=== PATIENT | male | born 1960 | race Caucasian/White ===

== ENCOUNTER 2018-04-14 16:30 | Inpatient (IN) | payer MEDICARE ==
[~2018-04-14] VITALS: Ht 180.3 cm; Wt 100.2 kg
[~2018-04-14 16:30] MED LIST: DIVA500T35 PO; DUTA.5 PO; GABA-531 PO; METF-444 PO; PREM125 PO; QUET200T PO; QUET300T2 PO; TAMS0.4C32 PO
[2018-04-14] MEDS ORDERED: LORazepam 1 MG TABLET PO PRN (17:30)
[2018-04-14] MEDS ORDERED: ZOLPIDEM TARTRATE 10 MG TABLET PO PRN (17:30)
[2018-04-14] MEDS ORDERED: PNEUMOCOCCAL VACCINE POLYVALENT 0.5 ML VIAL [PPSV23] IM ONE (17:45)
[2018-04-14 18:00] VITALS: BP 125/92
[2018-04-14 18:30] VITALS: BP 140/86
[2018-04-14] MEDS: GABAPENTIN 300 MG CAPSULE PO SCH (18:39)
[2018-04-14 19:23] LABS: GLUCOMETER DEV NAME(LOC) BV2N3; GLUCOSE,POINT OF CARE 140 MG/DL (70-110)
[2018-04-14] MEDS: OLANZapine 10 MG TABLET PO SCH (20:50)
[2018-04-14] MEDS: DIVALPROEX SODIUM 500 MG ER TABLET PO SCH (20:50)
[2018-04-14 21:30] VITALS: BP 132/82
[2018-04-14] MEDS ORDERED: GLUCAGON,HUMAN RECOMBINANT 1 MG VIAL IM PRN (21:45)
[2018-04-15 02:26] VITALS: BP 120/69
[2018-04-15 05:58] LABS: GLUCOMETER DEV NAME(LOC) BV2N3; GLUCOSE,POINT OF CARE 140 MG/DL (70-110)
[2018-04-15] MEDS: MetFORMIN HCL 500 MG TABLET PO SCH ×2 (06:41→16:38)
[2018-04-15] MEDS: NICOTINE 21 MG/24 HOUR PATCH TD SCH (08:35)
[2018-04-15] MEDS: GABAPENTIN 300 MG CAPSULE PO SCH ×2 (08:35→16:38)
[2018-04-15 08:40] VITALS: BP 126/72
[2018-04-15] MEDS ORDERED: ESTROGENS,CONJUGATED 0.625 MG TABLET PO SCH (09:00)
[2018-04-15 09:35] LABS: BASOPHILS % (AUTO) 1.1 % (0.0-2.0); EOSINOPHILS % (AUTO) 3.3 % (1.0-6.0); HEMATOCRIT 40.9 % (41-53); HEMOGLOBIN 14.1 g/dL (13.5-17.5); LYMPHOCYTES # (AUTO) 3.2 K/uL (1.0-4.8); LYMPHOCYTES % (AUTO) 44.2 % (22.0-44.0); MEAN CORPUSCULAR HEMOGLOBIN 31.6 pg (26.0-34.0); MEAN CORPUSCULAR HGB CONC 34.5 G/dL (31.0-37.0); MEAN CORPUSCULAR VOLUME 92 fL (80-100); MONOCYTES # (AUTO) 0.6 K/uL (0.1-1.0); MONOCYTES % (AUTO) 8.6 % (2.0-9.0); NEUTROPHILS # (AUTO) 3.1 K/uL (1.8-7.7); NEUTROPHILS % (AUTO) 42.8 % (40.0-70.0); PLATELET COUNT (AUTO) 267 K/uL (150-450); RED BLOOD CELL COUNT(AUTO) 4.46 MIL/uL (4.50-5.90); RED CELL DISTRIBUTION WIDTH 14.2 % (11.5-14.5)
[2018-04-15 09:38] LABS: ALANINE AMINOTRANSFERASE 22 U/L (12-78); ALBUMIN 3.3 g/dL (3.4-5.0); ALKALINE PHOSPHATASE 49 U/L (46-116); ANION GAP 9 mmol/L (8-16); ASPARTATE AMINOTRANSFERASE 13 U/L (15-37); BILIRUBIN,TOTAL 0.2 mg/dL (0.1-1.0); CALCIUM, TOTAL 8.4 mg/dL (8.8-10.5); CARBON DIOXIDE 26 mmol/L (22-29); CHLORIDE 102 mmol/L (98-107); CHOL/HDL RATIO 4.1 (4.2-7.3); CHOLESTEROL 194 mg/dL (131-200); CREATININE 0.85 mg/dL (0.60-1.30); FREE T4 (FREE THYROXINE) 0.73 ng/dL (0.76-1.46); GLOMERULAR FILTR. RATE CALC > 60 mL/min (>60); GLUCOSE,RANDOM 113 mg/dL (70-110); HDL CHOLESTEROL 47 mg/dL (40-60); LDL CHOL (CALC.) 96 mg/dL (0-130); POTASSIUM 3.7 mmol/L (3.5-5.1); SODIUM SERUM 137 mmol/L (136-145); TOTAL PROTEIN, SERUM 7.2 g/dL (6.4-8.2); TRIGLYCERIDES 257 mg/dL (15-150); UREA NITROGEN, BLOOD 23 mg/dL (7-18)
[2018-04-15 10:44] LABS: HEMOGLOBIN A1C 6.4 % (4.5-6.2)
[2018-04-15 11:08] LABS: GLUCOMETER DEV NAME(LOC) BV2N3; GLUCOSE,POINT OF CARE 100 MG/DL (70-110)
[2018-04-15] MEDS: ESTRADIOL 1 MG TABLET PO SCH (12:07)
[2018-04-15 13:13] LABS: FOLATE SERUM 10.6 ng/mL (5.4-)
[2018-04-15 15:02] VITALS: BP 110/73
[2018-04-15] MEDS: IBUPROFEN 600 MG TABLET PO PRN (15:02)
[2018-04-15 16:13] VITALS: BP 104/68
[2018-04-15 16:28] LABS: GLUCOMETER DEV NAME(LOC) BV2N3; GLUCOSE,POINT OF CARE 105 MG/DL (70-110)
[2018-04-15 20:33] LABS: GLUCOMETER DEV NAME(LOC) BV2N3; GLUCOSE,POINT OF CARE 105 MG/DL (70-110)
[2018-04-15] MEDS: DIVALPROEX SODIUM 500 MG ER TABLET PO SCH (20:33)
[2018-04-15] MEDS: DUTASTERIDE 0.5 MG CAPSULE PO SCH (20:33)
[2018-04-15] MEDS: OLANZapine 10 MG TABLET PO SCH (20:34)
[2018-04-15] MEDS: TAMSULOSIN HCL 0.4 MG CAPSULE PO SCH (20:35)
[2018-04-16 00:10] VITALS: BP 102/63
[2018-04-16 06:23] LABS: GLUCOMETER DEV NAME(LOC) BV2N3; GLUCOSE,POINT OF CARE 136 MG/DL (70-110)
[2018-04-16] MEDS: MetFORMIN HCL 500 MG TABLET PO SCH ×2 (06:44→17:00)
[2018-04-16 08:15] VITALS: BP 121/68
[2018-04-16] MEDS: GABAPENTIN 300 MG CAPSULE PO SCH ×2 (08:27→17:00)
[2018-04-16] MEDS: ESTRADIOL 1 MG TABLET PO SCH (08:27)
[2018-04-16] MEDS: NICOTINE 21 MG/24 HOUR PATCH TD SCH (08:27)
[2018-04-16 10:36] LABS: HIV 1-2 SCREEN 4TH GEN W/RFLX Non Reactive (Non Reactive)
[2018-04-16 11:32] VITALS: BP 117/79
[2018-04-16] MEDS: IBUPROFEN 600 MG TABLET PO PRN (11:32)
[2018-04-16 11:43] LABS: GLUCOMETER DEV NAME(LOC) BV2N3; GLUCOSE,POINT OF CARE 116 MG/DL (70-110)
[2018-04-16 16:03] VITALS: BP 119/68
[2018-04-16 17:03] LABS: GLUCOMETER DEV NAME(LOC) BV2N3; GLUCOSE,POINT OF CARE 126 MG/DL (70-110)
[2018-04-16 18:49] VITALS: BP 112/72
[2018-04-16] MEDS: ACETAMINOPHEN 325 MG TABLET PO PRN (18:49)
[2018-04-16] MEDS: TAMSULOSIN HCL 0.4 MG CAPSULE PO SCH (20:42)
[2018-04-16] MEDS: DIVALPROEX SODIUM 500 MG ER TABLET PO SCH (20:42)
[2018-04-16] MEDS: DUTASTERIDE 0.5 MG CAPSULE PO SCH (20:42)
[2018-04-16] MEDS: OLANZapine 10 MG TABLET PO SCH (20:42)
[2018-04-16 20:57] LABS: GLUCOMETER DEV NAME(LOC) BV2N3; GLUCOSE,POINT OF CARE 111 MG/DL (70-110)
[2018-04-17 06:30] VITALS: BP 106/61
[2018-04-17] MEDS: MetFORMIN HCL 500 MG TABLET PO SCH ×2 (06:49→17:00)
[2018-04-17 06:52] LABS: GLUCOMETER DEV NAME(LOC) BV2N3; GLUCOSE,POINT OF CARE 117 MG/DL (70-110)
[2018-04-17 08:08] VITALS: BP 102/64
[2018-04-17] MEDS: NICOTINE 21 MG/24 HOUR PATCH TD SCH (08:47)
[2018-04-17] MEDS: GABAPENTIN 400 MG CAPSULE PO SCH ×2 (08:47→17:00)
[2018-04-17] MEDS: ESTRADIOL 1 MG TABLET PO SCH (08:47)
[2018-04-17 11:07] LABS: GLUCOMETER DEV NAME(LOC) BV2N3; GLUCOSE,POINT OF CARE 113 MG/DL (70-110)
[2018-04-17 15:58] VITALS: BP 116/77
[2018-04-17 16:00] VITALS: BP 116/77
[2018-04-17 16:22] LABS: GLUCOMETER DEV NAME(LOC) BV2N3; GLUCOSE,POINT OF CARE 95 MG/DL (70-110)
[2018-04-17] MEDS: ACETAMINOPHEN 325 MG TABLET PO PRN (17:15)
[2018-04-17 20:22] LABS: GLUCOMETER DEV NAME(LOC) BV2N3; GLUCOSE,POINT OF CARE 145 MG/DL (70-110)
[2018-04-17] MEDS: DIVALPROEX SODIUM 500 MG ER TABLET PO SCH (20:30)
[2018-04-17] MEDS: DUTASTERIDE 0.5 MG CAPSULE PO SCH (20:30)
[2018-04-17] MEDS: TAMSULOSIN HCL 0.4 MG CAPSULE PO SCH (20:30)
[2018-04-17] MEDS: OLANZapine 10 MG TABLET PO SCH (20:30)
[2018-04-17] MEDS: INSULIN LISPRO 100 UNITS/ML SQ PRN (20:46)
[2018-04-18 00:35] VITALS: BP 135/70
[2018-04-18] MEDS: MetFORMIN HCL 500 MG TABLET PO SCH ×2 (06:44→16:41)
[2018-04-18 06:58] LABS: GLUCOMETER DEV NAME(LOC) BV2N3; GLUCOSE,POINT OF CARE 122 MG/DL (70-110)
[2018-04-18] MEDS: GABAPENTIN 400 MG CAPSULE PO SCH ×2 (08:10→16:41)
[2018-04-18] MEDS: NICOTINE 21 MG/24 HOUR PATCH TD SCH (08:10)
[2018-04-18] MEDS: ESTRADIOL 1 MG TABLET PO SCH (08:10)
[2018-04-18 08:19] VITALS: BP 112/67
[2018-04-18 11:08] LABS: GLUCOMETER DEV NAME(LOC) BV2N3; GLUCOSE,POINT OF CARE 113 MG/DL (70-110)
[2018-04-18 16:18] VITALS: BP 123/76
[2018-04-18 16:33] LABS: GLUCOMETER DEV NAME(LOC) BV2N3; GLUCOSE,POINT OF CARE 153 MG/DL (70-110)
[2018-04-18] MEDS: INSULIN LISPRO 100 UNITS/ML SQ PRN (16:51)
[2018-04-18 20:22] LABS: GLUCOMETER DEV NAME(LOC) BV2N3; GLUCOSE,POINT OF CARE 94 MG/DL (70-110)
[2018-04-18] MEDS: DUTASTERIDE 0.5 MG CAPSULE PO SCH (20:36)
[2018-04-18] MEDS: TAMSULOSIN HCL 0.4 MG CAPSULE PO SCH (20:36)
[2018-04-18] MEDS: DIVALPROEX SODIUM 500 MG ER TABLET PO SCH (20:36)
[2018-04-18] MEDS: OLANZapine 10 MG TABLET PO SCH (20:37)
[2018-04-19 06:03] VITALS: BP 116/75
[2018-04-19] MEDS: MetFORMIN HCL 500 MG TABLET PO SCH ×2 (06:20→16:35)
[2018-04-19 08:17] VITALS: BP 112/60
[2018-04-19] MEDS: GABAPENTIN 400 MG CAPSULE PO SCH ×2 (08:37→16:35)
[2018-04-19] MEDS: NICOTINE 21 MG/24 HOUR PATCH TD SCH (08:38)
[2018-04-19] MEDS: ESTRADIOL 1 MG TABLET PO SCH (08:38)
[2018-04-19] MEDS: IBUPROFEN 600 MG TABLET PO PRN (09:23)
[2018-04-19 11:08] LABS: GLUCOMETER DEV NAME(LOC) BV2N3; GLUCOSE,POINT OF CARE 122 MG/DL (70-110)
[2018-04-19 16:11] VITALS: BP 118/73
[2018-04-19 16:33] LABS: GLUCOMETER DEV NAME(LOC) BV2N3; GLUCOSE,POINT OF CARE 100 MG/DL (70-110)
[2018-04-19 20:22] LABS: GLUCOMETER DEV NAME(LOC) BV2N3; GLUCOSE,POINT OF CARE 114 MG/DL (70-110)
[2018-04-19] MEDS: OLANZapine 10 MG TABLET PO SCH (20:32)
[2018-04-19] MEDS: DIVALPROEX SODIUM 500 MG ER TABLET PO SCH (20:32)
[2018-04-19] MEDS: TAMSULOSIN HCL 0.4 MG CAPSULE PO SCH (20:32)
[2018-04-19] MEDS: DUTASTERIDE 0.5 MG CAPSULE PO SCH (20:32)
[2018-04-20 01:40] VITALS: BP 134/80
[2018-04-20 06:49] LABS: GLUCOMETER DEV NAME(LOC) BV2N3; GLUCOSE,POINT OF CARE 128 MG/DL (70-110)
[2018-04-20] MEDS: MetFORMIN HCL 500 MG TABLET PO SCH ×2 (06:55→16:33)
[2018-04-20 08:11] VITALS: BP 108/62
[2018-04-20] MEDS: GABAPENTIN 400 MG CAPSULE PO SCH ×2 (08:39→16:33)
[2018-04-20] MEDS: DIVALPROEX SODIUM 500 MG ER TABLET PO SCH ×2 (08:39→20:36)
[2018-04-20] MEDS: NICOTINE 21 MG/24 HOUR PATCH TD SCH (08:40)
[2018-04-20] MEDS: ESTRADIOL 1 MG TABLET PO SCH (08:48)
[2018-04-20 11:03] LABS: GLUCOMETER DEV NAME(LOC) BV2N3; GLUCOSE,POINT OF CARE 110 MG/DL (70-110)
[2018-04-20 16:00] VITALS: BP 115/77
[2018-04-20 16:28] LABS: GLUCOMETER DEV NAME(LOC) BV2N3; GLUCOSE,POINT OF CARE 106 MG/DL (70-110)
[2018-04-20 19:45] VITALS: BP 123/73
[2018-04-20 20:12] LABS: GLUCOMETER DEV NAME(LOC) BV2N3; GLUCOSE,POINT OF CARE 129 MG/DL (70-110)
[2018-04-20] MEDS: TAMSULOSIN HCL 0.4 MG CAPSULE PO SCH (20:35)
[2018-04-20] MEDS: OLANZapine 10 MG TABLET PO SCH (20:36)
[2018-04-20] MEDS: DUTASTERIDE 0.5 MG CAPSULE PO SCH (20:36)
[2018-04-20] MEDS: IBUPROFEN 600 MG TABLET PO PRN (20:36)
[2018-04-21 01:20] VITALS: BP 121/72
[2018-04-21 06:08] LABS: GLUCOMETER DEV NAME(LOC) BV2N3; GLUCOSE,POINT OF CARE 99 MG/DL (70-110)
[2018-04-21] MEDS: MetFORMIN HCL 500 MG TABLET PO SCH ×2 (06:58→16:38)
[2018-04-21 07:34] VITALS: BP 108/60
[2018-04-21 08:14] VITALS: BP 108/60
[2018-04-21] MEDS: DIVALPROEX SODIUM 500 MG ER TABLET PO SCH ×2 (08:26→20:35)
[2018-04-21] MEDS: GABAPENTIN 400 MG CAPSULE PO SCH ×2 (08:26→16:38)
[2018-04-21] MEDS: NICOTINE 21 MG/24 HOUR PATCH TD SCH (08:27)
[2018-04-21] MEDS: ESTRADIOL 1 MG TABLET PO SCH (08:34)
[2018-04-21 11:03] LABS: GLUCOMETER DEV NAME(LOC) BV2N3; GLUCOSE,POINT OF CARE 87 MG/DL (70-110)
[2018-04-21 16:27] LABS: GLUCOMETER DEV NAME(LOC) BV2N3; GLUCOSE,POINT OF CARE 129 MG/DL (70-110)
[2018-04-21 16:54] VITALS: BP 117/74
[2018-04-21] MEDS: IBUPROFEN 600 MG TABLET PO PRN (16:57)
[2018-04-21 20:13] LABS: GLUCOMETER DEV NAME(LOC) BV2N3; GLUCOSE,POINT OF CARE 106 MG/DL (70-110)
[2018-04-21] MEDS: TAMSULOSIN HCL 0.4 MG CAPSULE PO SCH (20:34)
[2018-04-21] MEDS: DUTASTERIDE 0.5 MG CAPSULE PO SCH (20:35)
[2018-04-21] MEDS: OLANZapine 10 MG TABLET PO SCH (20:35)
[2018-04-22 01:39] VITALS: BP 124/70
[2018-04-22] MEDS: MetFORMIN HCL 500 MG TABLET PO SCH ×2 (06:51→16:33)
[2018-04-22 06:52] LABS: GLUCOMETER DEV NAME(LOC) BV2N3; GLUCOSE,POINT OF CARE 112 MG/DL (70-110)
[2018-04-22] MEDS: DIVALPROEX SODIUM 500 MG ER TABLET PO SCH ×2 (08:23→20:35)
[2018-04-22] MEDS: GABAPENTIN 400 MG CAPSULE PO SCH ×2 (08:23→16:33)
[2018-04-22] MEDS: NICOTINE 21 MG/24 HOUR PATCH TD SCH (08:24)
[2018-04-22 08:27] VITALS: BP 120/67
[2018-04-22] MEDS: ESTRADIOL 1 MG TABLET PO SCH (08:29)
[2018-04-22 11:28] LABS: GLUCOMETER DEV NAME(LOC) BV2N3; GLUCOSE,POINT OF CARE 141 MG/DL (70-110)
[2018-04-22 16:12] VITALS: BP 110/74
[2018-04-22 16:22] LABS: GLUCOMETER DEV NAME(LOC) BV2N3; GLUCOSE,POINT OF CARE 120 MG/DL (70-110)
[2018-04-22 20:33] LABS: GLUCOMETER DEV NAME(LOC) BV2N3; GLUCOSE,POINT OF CARE 112 MG/DL (70-110)
[2018-04-22] MEDS: OLANZapine 10 MG TABLET PO SCH (20:34)
[2018-04-22] MEDS: TAMSULOSIN HCL 0.4 MG CAPSULE PO SCH (20:35)
[2018-04-22] MEDS: DUTASTERIDE 0.5 MG CAPSULE PO SCH (20:35)
[2018-04-23 01:23] VITALS: BP 114/69
[2018-04-23] MEDS: MetFORMIN HCL 500 MG TABLET PO SCH ×2 (06:42→16:41)
[2018-04-23 07:22] LABS: GLUCOMETER DEV NAME(LOC) BV2N3; GLUCOSE,POINT OF CARE 115 MG/DL (70-110)
[2018-04-23 08:03] VITALS: BP 100/60
[2018-04-23] MEDS: NICOTINE 21 MG/24 HOUR PATCH TD SCH (08:31)
[2018-04-23] MEDS: DIVALPROEX SODIUM 500 MG ER TABLET PO SCH ×2 (08:31→20:32)
[2018-04-23] MEDS: GABAPENTIN 400 MG CAPSULE PO SCH ×2 (08:31→16:41)
[2018-04-23] MEDS: ESTRADIOL 1 MG TABLET PO SCH (08:34)
[2018-04-23 16:01] VITALS: BP 101/61
[2018-04-23 16:38] LABS: GLUCOMETER DEV NAME(LOC) BV2N3; GLUCOSE,POINT OF CARE 119 MG/DL (70-110)
[2018-04-23] MEDS: OLANZapine 10 MG TABLET PO SCH (20:32)
[2018-04-23] MEDS: TAMSULOSIN HCL 0.4 MG CAPSULE PO SCH (20:32)
[2018-04-23] MEDS: DUTASTERIDE 0.5 MG CAPSULE PO SCH (20:32)
[2018-04-24 05:42] VITALS: BP 110/68
[2018-04-24 05:57] LABS: GLUCOMETER DEV NAME(LOC) BV2N3; GLUCOSE,POINT OF CARE 96 MG/DL (70-110)
[2018-04-24] MEDS: MetFORMIN HCL 500 MG TABLET PO SCH ×2 (06:44→16:19)
[2018-04-24 08:19] VITALS: BP 104/70
[2018-04-24] MEDS: GABAPENTIN 400 MG CAPSULE PO SCH ×2 (08:22→16:19)
[2018-04-24] MEDS: DIVALPROEX SODIUM 500 MG ER TABLET PO SCH ×2 (08:22→20:09)
[2018-04-24] MEDS: NICOTINE 21 MG/24 HOUR PATCH TD SCH (08:23)
[2018-04-24] MEDS: ESTRADIOL 1 MG TABLET PO SCH (08:23)
[2018-04-24] MEDS: FLUoxetine HCL 20 MG CAPSULE PO SCH (11:45)
[2018-04-24 16:04] VITALS: BP_SYST 111; BP_DIAS 71; BP_DIAS 83
[2018-04-24 17:23] LABS: GLUCOMETER DEV NAME(LOC) BV2N3; GLUCOSE,POINT OF CARE 134 MG/DL (70-110)
[2018-04-24] MEDS: TAMSULOSIN HCL 0.4 MG CAPSULE PO SCH (20:09)
[2018-04-24] MEDS: DUTASTERIDE 0.5 MG CAPSULE PO SCH (20:09)
[2018-04-24] MEDS: OLANZapine 10 MG TABLET PO SCH (20:10)
[2018-04-25 06:16] VITALS: BP 110/65
[2018-04-25 06:22] LABS: GLUCOMETER DEV NAME(LOC) BV2N3; GLUCOSE,POINT OF CARE 98 MG/DL (70-110)
[2018-04-25] MEDS: MetFORMIN HCL 500 MG TABLET PO SCH (06:54)
[2018-04-25 08:27] VITALS: BP 125/70
[2018-04-25] MEDS: FLUoxetine HCL 20 MG CAPSULE PO SCH (08:37)
[2018-04-25] MEDS: DIVALPROEX SODIUM 500 MG ER TABLET PO SCH (08:37)
[2018-04-25] MEDS: GABAPENTIN 400 MG CAPSULE PO SCH (08:37)
[2018-04-25] MEDS: ESTRADIOL 1 MG TABLET PO SCH (08:38)
[2018-04-25] MEDS: NICOTINE 21 MG/24 HOUR PATCH TD SCH (08:38)
[2018-04-25] MEDS ORDERED: DIVA500T69 PO (14:08)
[2018-04-25] MEDS ORDERED: OLAN10TA3 PO (14:08)
[2018-04-25] MEDS ORDERED: FLUO-191 PO (14:08)
[2018-04-25] MEDS ORDERED: METF500T6 PO (14:11)
== END 2018-04-25 15:40 | disposition home or self-care (01) | DRG 885 ==
LOC: B2X 17:37
PROVIDERS: ADMIT Psychiatry & Neurology Psychiatry; ATTEND Psychiatry & Neurology Psychiatry
DX: F25.0 Schizoaffective disorder, bipolar type (principal); R45.851 Suicidal ideations; E11.9 Type 2 diabetes mellitus without complications; Z91.14 Patient's other noncompliance with medication regimen; J44.9 Chronic obstructive pulmonary disease, unspecified; N40.0 Benign prostatic hyperplasia without lower urinary tract symptoms; M54.30 Sciatica, unspecified side; I10 Essential (primary) hypertension; F64.9 Gender identity disorder, unspecified; E03.9 Hypothyroidism, unspecified; F12.90 Cannabis use, unspecified, uncomplicated; F15.90 Other stimulant use, unspecified, uncomplicated; F14.90 Cocaine use, unspecified, uncomplicated; Z91.19 Patient's noncompliance with other medical treatment and regimen; Z90.49 Acquired absence of other specified parts of digestive tract; Z88.8 Allergy status to other drugs, medicaments and biological substances; Z86.79 Personal history of other diseases of the circulatory system; Z82.5 Family history of asthma and other chronic lower respiratory diseases; Z28.21 Immunization not carried out because of patient refusal
CPT/HCPCS: 73521; 80074; 82105; 82306; 82607; 82746; 83036; 83735; 84439; 84443; 87081; 87389

== ENCOUNTER 2019-07-23 08:23 | Emergency (ER) | payer MEDICARE, OTHER ==
[~2019-07-23] VITALS: Ht 180.3 cm; Wt 100.0 kg
[~2019-07-23 08:23] MED LIST changes: +DIVA-78 PO; -DIVA500T35 PO; +DIVA500T69 PO; +FLUO-191 PO; +OLAN10TA3 PO; -PREM125 PO; -QUET200T PO; -QUET300T2 PO
[2019-07-23] MEDS ORDERED: FOLI0.4T14 PO (08:40)
[2019-07-23] MEDS ORDERED: BREX1TAB PO (08:40)
[2019-07-23] MEDS ORDERED: LORazepam 1 MG TABLET PO ONE (10:00)
[2019-07-23 10:10] LABS: BASOPHILS % (AUTO) 0.4 % (0.0-2.0); EOSINOPHILS % (AUTO) 0.2 % (1.0-6.0); HEMATOCRIT 45.3 % (41-53); HEMOGLOBIN 14.9 g/dL (13.5-17.5); LYMPHOCYTES # (AUTO) 1.1 K/uL (1.0-4.8); LYMPHOCYTES % (AUTO) 12.9 % (22.0-44.0); MEAN CORPUSCULAR HEMOGLOBIN 31.7 pg (26.0-34.0); MEAN CORPUSCULAR VOLUME 96 fL (80-100); MONOCYTES # (AUTO) 0.5 K/uL (0.1-1.0); MONOCYTES % (AUTO) 6.2 % (2.0-9.0); NEUTROPHILS # (AUTO) 6.8 K/uL (1.8-7.7); NEUTROPHILS % (AUTO) 80.3 % (40.0-70.0); PLATELET COUNT (AUTO) 207 K/uL (150-450); RED BLOOD CELL COUNT(AUTO) 4.71 MIL/uL (4.50-5.90); RED CELL DISTRIBUTION WIDTH 14.8 % (11.5-14.5)
[2019-07-23 10:23] LABS: ANION GAP 11 mmol/L (8-16); CALCIUM, TOTAL 9.3 mg/dL (8.8-10.5); CARBON DIOXIDE 25 mmol/L (22-29); CHLORIDE 105 mmol/L (98-107); CREATININE 1.04 mg/dL (0.60-1.30); GLOMERULAR FILTR. RATE CALC > 60 mL/min (>60); GLUCOSE,RANDOM 151 mg/dL (70-110); POTASSIUM 3.7 mmol/L (3.5-5.1); SODIUM SERUM 141 mmol/L (136-145); UREA NITROGEN, BLOOD 14 mg/dL (7-18)
[2019-07-23 10:29] LABS: ALANINE AMINOTRANSFERASE 22 U/L (12-78); ALBUMIN 4.2 g/dL (3.4-5.0); ALKALINE PHOSPHATASE 46 U/L (46-116); ASPARTATE AMINOTRANSFERASE 22 U/L (15-37); BILIRUBIN,TOTAL 0.3 mg/dL (0.1-1.0); TOTAL PROTEIN, SERUM 7.6 g/dL (6.4-8.2)
[2019-07-23 10:55] LABS: APPEARANCE,URINE CLEAR (CLEAR); BILIRUBIN,URINE NEGATIVE (NEGATIVE); GLUCOSE, URINE (UA) NEGATIVE (NEGATIVE); KETONES,URINE 15 mg/dL (NEGATIVE); LEUKOCYTE ESTERASE ,URINE NEGATIVE (NEGATIVE); NITRATE,URINE NEGATIVE (NEGATIVE); OCCULT BLOOD,URINE NEGATIVE (NEGATIVE); PH,URINE 6.5 (5.0-8.0); PROTEIN,URINE NEGATIVE (NEGATIVE)
[2019-07-23 11:03] LABS: BACTERIA,URINE None Seen /HPF (None Seen); RBC,URINE None Seen /HPF (0-2); SQUAMOUS EPITHELIAL CELL,UR Rare /LPF (None Seen); WBC,URINE 0-2 /HPF (0-5)
[2019-07-23] MEDS ORDERED: IOVERSOL 350 MG/ML 100 ML VIAL ONE (12:19)
[2019-07-23 15:00] VITALS: BP 149/88
== END 2019-07-23 15:25 | disposition home or self-care (01) ==
LOC: EMS 08:26
DX: F41.9 Anxiety disorder, unspecified (principal); J44.9 Chronic obstructive pulmonary disease, unspecified; M79.604 Pain in right leg; E11.40 Type 2 diabetes mellitus with diabetic neuropathy, unspecified; E78.00 Pure hypercholesterolemia, unspecified; I10 Essential (primary) hypertension; F20.9 Schizophrenia, unspecified; F12.90 Cannabis use, unspecified, uncomplicated; Z86.19 Personal history of other infectious and parasitic diseases; Z98.890 Other specified postprocedural states; Z59.0 Homelessness; Z90.49 Acquired absence of other specified parts of digestive tract; Z79.899 Other long term (current) drug therapy; Z88.1 Allergy status to other antibiotic agents; Z88.5 Allergy status to narcotic agent; Z88.8 Allergy status to other drugs, medicaments and biological substances
CPT/HCPCS: 36415; 71045; 71275; 80053; 81001; 84484; 85025; 85379; 93005; 99285; Q9967

== ENCOUNTER 2020-03-09 17:42 | Emergency (ER) | payer MEDICARE, OTHER ==
[~2020-03-09] VITALS: Ht 180.3 cm; Wt 104.5 kg
[~2020-03-09 17:42] MED LIST changes: +BREX1TAB PO; -DIVA500T69 PO; +FOLI0.4T14 PO; -METF-444 PO; -TAMS0.4C32 PO
[2020-03-09 17:44] VITALS: BP 108/71
[2020-03-09] MEDS ORDERED: METF-960 PO (17:49)
[2020-03-09] MEDS ORDERED: PREG50 PO (17:49)
[2020-03-09] MEDS ORDERED: DIVA500T52 PO (20:23)
== END 2020-03-09 18:20 | disposition left against medical advice (07) ==
LOC: EMS 17:44
DX: L03.031 Cellulitis of right toe (principal); E11.9 Type 2 diabetes mellitus without complications; J44.9 Chronic obstructive pulmonary disease, unspecified; E78.00 Pure hypercholesterolemia, unspecified; I10 Essential (primary) hypertension; F12.90 Cannabis use, unspecified, uncomplicated; F41.9 Anxiety disorder, unspecified; Z90.89 Acquired absence of other organs; Z59.0 Homelessness; Z79.84 Long term (current) use of oral hypoglycemic drugs; Z88.8 Allergy status to other drugs, medicaments and biological substances

== ENCOUNTER 2022-06-23 23:57 | Emergency (ER) | payer MEDICARE, OTHER ==
[~2022-06-23] VITALS: Ht 182.9 cm; Wt 81.8 kg
[~2022-06-23 23:57] MED LIST changes: -DIVA-78 PO; +DIVA-80 PO; +FLUO-177 PO; -FLUO-191 PO; -FOLI0.4T14 PO; -GABA-531 PO; +METF-1211 PO; -OLAN10TA3 PO; +OLAN10TA74 PO; +PREG50 PO
[2022-06-24 00:47] LABS: BASOPHILS % (AUTO) 0.7 % (0.0-2.0); EOSINOPHILS % (AUTO) 2.4 % (1.0-6.0); LYMPHOCYTES # (AUTO) 3.9 K/uL (1.0-4.8); MEAN CORPUSCULAR HEMOGLOBIN 24.1 pg (26.0-34.0); MEAN CORPUSCULAR HGB CONC 32.5 G/dL (31.0-37.0); MEAN CORPUSCULAR VOLUME 74 fL (80-100); MONOCYTES # (AUTO) 0.6 K/uL (0.1-1.0); MONOCYTES % (AUTO) 8.1 % (2.0-9.0); NEUTROPHILS # (AUTO) 2.9 K/uL (1.8-7.7); NEUTROPHILS % (AUTO) 37.8 % (40.0-70.0); PLATELET COUNT (AUTO) 311 K/uL (150-450); RED CELL DISTRIBUTION WIDTH 24.3 % (11.5-14.5)
[2022-06-24 00:56] LABS: ANION GAP 10 mmol/L (8-16); CALCIUM, TOTAL 9.3 mg/dL (8.8-10.5); CARBON DIOXIDE 26 mmol/L (22-29); CHLORIDE 101 mmol/L (98-107); GLUCOSE,RANDOM 127 mg/dL (70-110); POTASSIUM 3.4 mmol/L (3.5-5.1); SODIUM SERUM 137 mmol/L (136-145); UREA NITROGEN, BLOOD 10 mg/dL (7-18)
[2022-06-24 00:57] LABS: GLOMERULAR FILTR. RATE CALC > 60 mL/min (>60)
[2022-06-24 01:02] LABS: ALANINE AMINOTRANSFERASE 15 U/L (12-78); ALBUMIN 3.6 g/dL (3.4-5.0); ALKALINE PHOSPHATASE 77 U/L (46-116); ASPARTATE AMINOTRANSFERASE 9 U/L (15-37); BILIRUBIN,TOTAL 0.3 mg/dL (0.1-1.0); TOTAL PROTEIN, SERUM 7.5 g/dL (6.4-8.2)
[2022-06-24 05:34] LABS: APPEARANCE,URINE CLEAR (CLEAR); GLUCOSE, URINE (UA) NEGATIVE (NEGATIVE); OCCULT BLOOD,URINE NEGATIVE (NEGATIVE); PROTEIN,URINE NEGATIVE (NEGATIVE); SPECIFIC GRAVITIY, URINE 1.017 (1.003-1.030)
[2022-06-24 05:35] LABS: BILIRUBIN,URINE NEGATIVE (NEGATIVE); KETONES,URINE NEGATIVE (NEGATIVE); LEUKOCYTE ESTERASE ,URINE NEGATIVE (NEGATIVE); NITRATE,URINE NEGATIVE (NEGATIVE); UROBILINOGEN,URINE <=1.0 mg/dL (<=1.0)
[2022-06-24] MEDS ORDERED: SODIUM CHLORIDE 0.9% 1,000 ML IV ONE (06:00)
[2022-06-24 07:30] VITALS: BP 136/77
[2022-06-30] MEDS ORDERED: CIPR500T10 PO (21:23)
[2022-06-30] MEDS ORDERED: MORP15TA70 PO (21:23)
[2022-06-30] MEDS ORDERED: MEGE400O23 PO (21:32)
[2022-06-30] MEDS ORDERED: LACT10SO10 PO (21:32)
[2022-06-30] MEDS ORDERED: FLUO20CA36 PO (21:32)
[2022-06-30] MEDS ORDERED: MELA5TAB40 PO (21:32)
[2022-06-30] MEDS ORDERED: CLOP75TA60 PO (21:32)
[2022-06-30] MEDS ORDERED: NYST15PO3 TP (21:32)
[2022-06-30] MEDS ORDERED: ATOR40TA28 PO (21:32)
[2022-07-01] MEDS ORDERED: ERTA1I IV ×2 (00:25→00:32)
[2022-07-01] MEDS ORDERED: ACET-66 PO (00:32)
[2022-07-01] MEDS ORDERED: MORPHINE PO (00:32)
[2022-07-01] MEDS ORDERED: CIPR250T26 PO (00:32)
[2022-07-01] MEDS ORDERED: [UNRECOGNIZED DRUG - OTHER] CLINICAL (00:55)
[2022-07-01] MEDS ORDERED: SULF1TAB42 PO (00:55)
[2022-07-01] MEDS ORDERED: QUET200T PO (00:55)
[2022-07-01] MEDS ORDERED: [UNRECOGNIZED DRUG - OTHER] (00:55)
[2022-07-01] MEDS ORDERED: MULT-660 PO (00:55)
[2022-07-01] MEDS ORDERED: FLUO20CA36 PO (00:55)
[2022-07-01] MEDS ORDERED: PREG75 PO (00:55)
[2022-07-01] MEDS ORDERED: SENN-309 PO (00:55)
[2022-07-01] MEDS ORDERED: ONDA-104 PO ×2 (00:55)
[2022-07-01] MEDS ORDERED: MEGE40TA33 PO (00:55)
[2022-07-01] MEDS ORDERED: CLOP75TA60 PO (00:55)
[2022-07-01] MEDS ORDERED: ASCO500C18 PO (00:55)
[2022-07-01] MEDS ORDERED: FAMO20 PO (00:55)
[2022-07-01] MEDS ORDERED: LACT10SO32 PO (00:55)
[2022-07-01] MEDS ORDERED: BISA-151 PO (00:55)
[2022-07-01] MEDS ORDERED: ATOR40TA28 PO (00:55)
[2022-07-01] MEDS ORDERED: CA C1TAB74 PO (00:55)
[2022-07-01] MEDS ORDERED: [UNRECOGNIZED DRUG - OTHER] CONTIV (00:55)
[2022-07-01] MEDS ORDERED: mom PO (00:55)
[2022-07-01] MEDS ORDERED: LACT1TAB4 PO (00:55)
[2022-07-01] MEDS ORDERED: MELA1TAB17 PO (00:55)
[2022-07-01] MEDS ORDERED: LORA-999 PO (00:55)
[2022-07-01] MEDS ORDERED: THIA100T80 PO (00:55)
[2022-07-01] MEDS ORDERED: DIVA-54 PO (00:55)
== END 2022-06-24 08:53 | disposition home or self-care (01) ==
LOC: EMS 23:59
DX: N50.811 Right testicular pain (principal); F41.9 Anxiety disorder, unspecified; J44.9 Chronic obstructive pulmonary disease, unspecified; E11.9 Type 2 diabetes mellitus without complications; E78.00 Pure hypercholesterolemia, unspecified; I10 Essential (primary) hypertension; F20.9 Schizophrenia, unspecified; M10.9 Gout, unspecified; I71.4 Abdominal aortic aneurysm, without rupture; F17.210 Nicotine dependence, cigarettes, uncomplicated; F12.90 Cannabis use, unspecified, uncomplicated; Z86.19 Personal history of other infectious and parasitic diseases; Z86.69 Personal history of other diseases of the nervous system and sense organs; Z87.19 Personal history of other diseases of the digestive system; Z90.49 Acquired absence of other specified parts of digestive tract; Z89.511 Acquired absence of right leg below knee; Z98.890 Other specified postprocedural states; Z59.00 Homelessness unspecified; Z88.8 Allergy status to other drugs, medicaments and biological substances
CPT/HCPCS: 99285; 80053; 81003; 85025; 36415; 96360; 76870; J7030; 51701

== ENCOUNTER 2022-07-19 13:49 | Emergency (ER) | payer MEDICARE, OTHER ==
[~2022-07-19] VITALS: Ht 172.7 cm; Wt 86.4 kg
[~2022-07-19 13:49] MED LIST changes: +ACET-66 PO; +ASCO500C18 PO; +ATOR40TA28 PO; +BISA-151 PO; -BREX1TAB PO; +CA C1TAB74 PO; +CIPR250T26 PO; +CLOP75TA60 PO; +DIVA-54 PO; -DIVA-80 PO; -DUTA.5 PO; +ERTA1I IV; +FAMO20 PO; -FLUO-177 PO; +FLUO20CA36 PO; +LACT10SO32 PO; +LACT1TAB4 PO; +LORA-999 PO; +MEGE40TA33 PO; +MELA1TAB17 PO; -METF-1211 PO; +MORPHINE PO; +MULT-660 PO; -OLAN10TA74 PO; +ONDA-104 PO; -PREG50 PO; +PREG75 PO; +QUET200T PO; +SENN-309 PO; +SULF1TAB42 PO; +THIA100T80 PO; +[UNRECOGNIZED DRUG - OTHER]; +[UNRECOGNIZED DRUG - OTHER] CLINICAL; +[UNRECOGNIZED DRUG - OTHER] CONTIV; +mom PO
[2022-07-19 14:42] LABS: BASOPHILS % (AUTO) 0.7 % (0.0-2.0); EOSINOPHILS % (AUTO) 0.3 % (1.0-6.0); HEMATOCRIT 39.4 % (41-53); HEMOGLOBIN 13.1 g/dL (13.5-17.5); LYMPHOCYTES # (AUTO) 2.8 K/uL (1.0-4.8); LYMPHOCYTES % (AUTO) 26.3 % (22.0-44.0); MEAN CORPUSCULAR HGB CONC 33.2 G/dL (31.0-37.0); MEAN CORPUSCULAR VOLUME 75 fL (80-100); MONOCYTES # (AUTO) 0.8 K/uL (0.1-1.0); MONOCYTES % (AUTO) 7.5 % (2.0-9.0); NEUTROPHILS % (AUTO) 65.2 % (40.0-70.0); PLATELET COUNT (AUTO) 399 K/uL (150-450); RED BLOOD CELL COUNT(AUTO) 5.23 MIL/uL (4.50-5.90); RED CELL DISTRIBUTION WIDTH 22.4 % (11.5-14.5)
[2022-07-19 14:49] LABS: ANION GAP 12 mmol/L (8-16); CALCIUM, TOTAL 9.5 mg/dL (8.8-10.5); CARBON DIOXIDE 25 mmol/L (22-29); CHLORIDE 102 mmol/L (98-107); CREATININE 0.59 mg/dL (0.60-1.30); GLUCOSE,RANDOM 115 mg/dL (70-110); POTASSIUM 3.4 mmol/L (3.5-5.1); SODIUM SERUM 139 mmol/L (136-145); UREA NITROGEN, BLOOD 9 mg/dL (7-18)
[2022-07-19 14:50] LABS: GLOMERULAR FILTR. RATE CALC > 60 mL/min (>60)
[2022-07-19 14:57] LABS: ALANINE AMINOTRANSFERASE 21 U/L (12-78); ALBUMIN 3.7 g/dL (3.4-5.0); ALKALINE PHOSPHATASE 89 U/L (46-116); ASPARTATE AMINOTRANSFERASE 15 U/L (15-37); BILIRUBIN,TOTAL 0.5 mg/dL (0.1-1.0); TOTAL PROTEIN, SERUM 7.9 g/dL (6.4-8.2)
[2022-07-19] MEDS ORDERED: HYDROCODONE/ACETAMINOPHEN 5-325 MG TABLET PO ONE (15:30)
[2022-07-19 16:28] VITALS: BP 140/79
== END 2022-07-19 19:13 | disposition home or self-care (01) ==
LOC: EMS 13:49
DX: N50.811 Right testicular pain (principal); N50.812 Left testicular pain; I10 Essential (primary) hypertension; E78.00 Pure hypercholesterolemia, unspecified; E11.9 Type 2 diabetes mellitus without complications; F41.9 Anxiety disorder, unspecified; F17.210 Nicotine dependence, cigarettes, uncomplicated; F12.90 Cannabis use, unspecified, uncomplicated; Z88.8 Allergy status to other drugs, medicaments and biological substances; Z79.899 Other long term (current) drug therapy; Z59.00 Homelessness unspecified
CPT/HCPCS: 99283; 80053; 85025; 36415; G0480

== ENCOUNTER 2022-09-29 11:41 | Emergency (ER) | payer MEDICARE, OTHER ==
[~2022-09-29] VITALS: Ht 172.7 cm; Wt 86.4 kg
[2022-09-29 14:52] LABS: BASOPHILS % (AUTO) 0.7 % (0.0-2.0); HEMATOCRIT 37.1 % (41-53); HEMOGLOBIN 11.5 g/dL (13.5-17.5); LYMPHOCYTES # (AUTO) 2.8 K/uL (1.0-4.8); LYMPHOCYTES % (AUTO) 39.3 % (22.0-44.0); MEAN CORPUSCULAR HEMOGLOBIN 24.2 pg (26.0-34.0); MEAN CORPUSCULAR HGB CONC 31.1 G/dL (31.0-37.0); MEAN CORPUSCULAR VOLUME 78 fL (80-100); MONOCYTES # (AUTO) 0.5 K/uL (0.1-1.0); MONOCYTES % (AUTO) 6.7 % (2.0-9.0); NEUTROPHILS # (AUTO) 3.6 K/uL (1.8-7.7); NEUTROPHILS % (AUTO) 49.3 % (40.0-70.0); PLATELET COUNT (AUTO) 443 K/uL (150-450); RED BLOOD CELL COUNT(AUTO) 4.77 MIL/uL (4.50-5.90); RED CELL DISTRIBUTION WIDTH 18.4 % (11.5-14.5)
[2022-09-29 15:01] LABS: ANION GAP 10 mmol/L (8-16); CALCIUM, TOTAL 9.2 mg/dL (8.8-10.5); CARBON DIOXIDE 27 mmol/L (22-29); CHLORIDE 106 mmol/L (98-107); CREATININE 0.49 mg/dL (0.60-1.30); GLUCOSE,RANDOM 112 mg/dL (70-110); POTASSIUM 3.3 mmol/L (3.5-5.1); SODIUM SERUM 143 mmol/L (136-145); UREA NITROGEN, BLOOD 4 mg/dL (7-18)
[2022-09-29 15:04] LABS: GLOMERULAR FILTR. RATE CALC > 60 mL/min (>60)
[2022-09-29 15:05] LABS: ALANINE AMINOTRANSFERASE 16 U/L (12-78); ALKALINE PHOSPHATASE 82 U/L (46-116); ASPARTATE AMINOTRANSFERASE 11 U/L (15-37); BILIRUBIN,TOTAL 0.3 mg/dL (0.1-1.0); LIPASE 109 U/L (73-393)
[2022-09-29] MEDS ORDERED: KETOROLAC TROMETHAMINE 30 MG/ML VIAL IM ONE (16:00)
[2022-09-29 16:25] VITALS: BP 121/83
== END 2022-09-29 16:44 | disposition home or self-care (01) ==
LOC: EMS 11:41
DX: R10.31 Right lower quadrant pain (principal); F41.9 Anxiety disorder, unspecified; E11.9 Type 2 diabetes mellitus without complications; J44.9 Chronic obstructive pulmonary disease, unspecified; E78.00 Pure hypercholesterolemia, unspecified; I10 Essential (primary) hypertension; F20.9 Schizophrenia, unspecified; R56.9 Unspecified convulsions; I71.40 Abdominal aortic aneurysm, without rupture, unspecified; F17.210 Nicotine dependence, cigarettes, uncomplicated; F12.90 Cannabis use, unspecified, uncomplicated; Z59.00 Homelessness unspecified; Z90.49 Acquired absence of other specified parts of digestive tract; Z98.890 Other specified postprocedural states; Z88.5 Allergy status to narcotic agent
CPT/HCPCS: 99284; 74176; 80053; 83690; 85025; 36415; 96372; J1885

== ENCOUNTER 2022-10-10 21:58 | Emergency (ER) | payer MEDICARE, OTHER ==
[~2022-10-10] VITALS: Ht 180.3 cm; Wt 97.7 kg
[2022-10-10] MEDS ORDERED: ACETAMINOPHEN 500 MG TABLET PO ONE (23:00)
[2022-10-10] MEDS ORDERED: VANCOMYCIN 1GM/WATER(PEG/NADA) 200 ML IV ONE (23:00)
[2022-10-10] MEDS ORDERED: IOHEXOL 350 MG/ML 100 ML VIAL ONE (23:10)
[2022-10-10] MEDS ORDERED: SODIUM CHLORIDE 0.9% 100 ML ONE (23:11)
[2022-10-10 23:58] LABS: BASOPHILS % (AUTO) 1.2 % (0.0-2.0); EOSINOPHILS % (AUTO) 2.3 % (1.0-6.0); HEMATOCRIT 32.4 % (41-53); HEMOGLOBIN 10.4 g/dL (13.5-17.5); LYMPHOCYTES # (AUTO) 2.7 K/uL (1.0-4.8); MEAN CORPUSCULAR HEMOGLOBIN 24.6 pg (26.0-34.0); MEAN CORPUSCULAR VOLUME 77 fL (80-100); MONOCYTES # (AUTO) 0.7 K/uL (0.1-1.0); NEUTROPHILS # (AUTO) 4.3 K/uL (1.8-7.7); NEUTROPHILS % (AUTO) 53.5 % (40.0-70.0); PLATELET COUNT (AUTO) 323 K/uL (150-450); RED CELL DISTRIBUTION WIDTH 18.3 % (11.5-14.5)
[2022-10-11 00:06] LABS: ANION GAP 4 mmol/L (8-16); CARBON DIOXIDE 28 mmol/L (22-29); CHLORIDE 106 mmol/L (98-107); CREATININE 0.63 mg/dL (0.60-1.30); GLUCOSE,RANDOM 135 mg/dL (70-110); POTASSIUM 3.4 mmol/L (3.5-5.1); SODIUM SERUM 138 mmol/L (136-145); UREA NITROGEN, BLOOD 8 mg/dL (7-18)
[2022-10-11 00:07] LABS: CALCIUM, TOTAL 8.9 mg/dL (8.8-10.5)
[2022-10-11 00:10] LABS: GLOMERULAR FILTR. RATE CALC > 60 mL/min (>60)
[2022-10-11 00:12] LABS: ALANINE AMINOTRANSFERASE 14 U/L (12-78); ALKALINE PHOSPHATASE 79 U/L (46-116); ASPARTATE AMINOTRANSFERASE 11 U/L (15-37); BILIRUBIN,TOTAL 0.1 mg/dL (0.1-1.0); TOTAL PROTEIN, SERUM 6.5 g/dL (6.4-8.2)
[2022-10-11 00:15] LABS: LACTIC ACID 1.8 mmol/L (0.4-2.0)
[2022-10-11] MEDS ORDERED: PIPERACILLIN/TAZO 3.375 GM/D5W 50 ML IV ONE (00:15)
[2022-10-11 00:30] VITALS: BP 136/90
[2022-10-11] MEDS ORDERED: 0.9% SODIUM CHLORIDE 10 ML SYRINGE IVP PRN (04:30)
[2022-10-11] MEDS ORDERED: ACETAMINOPHEN 325 MG TABLET PO PRN (04:30)
[2022-10-11] MEDS ORDERED: ONDANSETRON HCL 4 MG/2 ML VIAL IVP PRN (04:30)
== END 2022-10-11 11:41 | disposition left against medical advice (07) ==
LOC: EMS 22:01
DX: K65.0 Generalized (acute) peritonitis (principal); F41.9 Anxiety disorder, unspecified; E11.9 Type 2 diabetes mellitus without complications; E78.00 Pure hypercholesterolemia, unspecified; J44.9 Chronic obstructive pulmonary disease, unspecified; I10 Essential (primary) hypertension; F20.9 Schizophrenia, unspecified; R56.9 Unspecified convulsions; I71.40 Abdominal aortic aneurysm, without rupture, unspecified; F17.210 Nicotine dependence, cigarettes, uncomplicated; F12.90 Cannabis use, unspecified, uncomplicated; Z90.49 Acquired absence of other specified parts of digestive tract; Z59.00 Homelessness unspecified; Z89.611 Acquired absence of right leg above knee; Z98.890 Other specified postprocedural states; Z88.8 Allergy status to other drugs, medicaments and biological substances
CPT/HCPCS: 99284; 96365; 80053; 83605; 85025; 87040; 36415; 96367; G0480; Q9967; J7050; J2543; 96366

== ENCOUNTER 2022-10-11 23:46 | Emergency (ER) | payer MEDICARE, OTHER ==
[~2022-10-11] VITALS: Ht 180.3 cm; Wt 81.8 kg
[2022-10-11 23:49] VITALS: BP 132/81
[2022-10-12] MEDS ORDERED: ACETAMINOPHEN 500 MG TABLET PO ONE (01:30)
[2022-10-12] MEDS ORDERED: DOXYCYCLINE HYCLATE 100 MG TABLET PO ONE (01:30)
== END 2022-10-12 04:59 | disposition home or self-care (01) ==
LOC: EMS 23:48
DX: L03.314 Cellulitis of groin (principal); F41.9 Anxiety disorder, unspecified; J44.9 Chronic obstructive pulmonary disease, unspecified; E11.9 Type 2 diabetes mellitus without complications; E78.00 Pure hypercholesterolemia, unspecified; I10 Essential (primary) hypertension; R56.9 Unspecified convulsions; F20.9 Schizophrenia, unspecified; F17.210 Nicotine dependence, cigarettes, uncomplicated; F12.90 Cannabis use, unspecified, uncomplicated; Z90.49 Acquired absence of other specified parts of digestive tract
CPT/HCPCS: 99283

== ENCOUNTER 2022-10-14 00:58 | Emergency (ER) | payer MEDICARE, OTHER ==
[~2022-10-14] VITALS: Ht 180.3 cm; Wt 100.0 kg
[2022-10-14 02:50] LABS: BASOPHILS % (AUTO) 0.8 % (0.0-2.0); HEMOGLOBIN 10.2 g/dL (13.5-17.5); LYMPHOCYTES # (AUTO) 3.5 K/uL (1.0-4.8); LYMPHOCYTES % (AUTO) 40.2 % (22.0-44.0); MEAN CORPUSCULAR HEMOGLOBIN 24.5 pg (26.0-34.0); MEAN CORPUSCULAR HGB CONC 31.9 G/dL (31.0-37.0); MEAN CORPUSCULAR VOLUME 77 fL (80-100); MONOCYTES # (AUTO) 0.7 K/uL (0.1-1.0); MONOCYTES % (AUTO) 8.4 % (2.0-9.0); NEUTROPHILS # (AUTO) 4.2 K/uL (1.8-7.7); NEUTROPHILS % (AUTO) 48.6 % (40.0-70.0); PLATELET COUNT (AUTO) 347 K/uL (150-450); RED BLOOD CELL COUNT(AUTO) 4.17 MIL/uL (4.50-5.90); RED CELL DISTRIBUTION WIDTH 18.4 % (11.5-14.5)
[2022-10-14 02:58] LABS: ANION GAP 10 mmol/L (8-16); CARBON DIOXIDE 27 mmol/L (22-29); CHLORIDE 103 mmol/L (98-107); CREATININE 0.76 mg/dL (0.60-1.30); GLUCOSE,RANDOM 134 mg/dL (70-110); POTASSIUM 3.3 mmol/L (3.5-5.1); SODIUM SERUM 140 mmol/L (136-145); UREA NITROGEN, BLOOD 9 mg/dL (7-18)
[2022-10-14 02:59] LABS: GLOMERULAR FILTR. RATE CALC > 60 mL/min (>60)
[2022-10-14 03:05] LABS: ACETONE,BLOOD NEGATIVE (NEGATIVE)
[2022-10-14 03:10] LABS: ALANINE AMINOTRANSFERASE 15 U/L (12-78); ALBUMIN 2.9 g/dL (3.4-5.0); ALKALINE PHOSPHATASE 73 U/L (46-116); ASPARTATE AMINOTRANSFERASE 13 U/L (15-37); BILIRUBIN,TOTAL 0.3 mg/dL (0.1-1.0); TOTAL PROTEIN, SERUM 6.7 g/dL (6.4-8.2)
[2022-10-14] MEDS ORDERED: KETOROLAC TROMETHAMINE 60 MG/2 ML VIAL IM ONE (04:15)
[2022-10-14] MEDS ORDERED: OxyCODONE HCL/ACETAMINOPHEN 5-325 MG TABLET PO ONE (04:45)
[2022-10-14 07:53] VITALS: BP 124/78
== END 2022-10-14 07:53 | disposition home or self-care (01) ==
LOC: EMS 01:01
DX: G89.29 Other chronic pain (principal); F41.9 Anxiety disorder, unspecified; J44.9 Chronic obstructive pulmonary disease, unspecified; E11.9 Type 2 diabetes mellitus without complications; E78.00 Pure hypercholesterolemia, unspecified; I10 Essential (primary) hypertension; F20.9 Schizophrenia, unspecified; I71.40 Abdominal aortic aneurysm, without rupture, unspecified; F17.210 Nicotine dependence, cigarettes, uncomplicated; F12.90 Cannabis use, unspecified, uncomplicated; Z59.00 Homelessness unspecified; Z90.49 Acquired absence of other specified parts of digestive tract; Z98.890 Other specified postprocedural states; Z89.611 Acquired absence of right leg above knee; Z88.8 Allergy status to other drugs, medicaments and biological substances
CPT/HCPCS: 99285; 71045; 80053; 82009; 82962; 85025; 36415; 93005; 96372; J1885